=== PATIENT | male | born 1955 | race Caucasian/White ===

== ENCOUNTER → 2017-05-12 | Outpatient (CLI) | payer OTHER | LOC: YCFC.O 09:43 | PROVIDERS: ATTEND Nurse Practitioner Family | DX: R53.83 Other fatigue (principal); R63.0 Anorexia; R63.4 Abnormal weight loss ==

== ENCOUNTER → 2017-05-21 | Outpatient (CLI) | payer OTHER ==
--- NOTE | 2017-05-22 08:58 | RAD ---
EXAM DESCRIPTION: Chest,2 Views CLINICAL HISTORY: 61 years, Male, DYSPNEA COMPARISON: March 08, 2014 FINDINGS: Adequate inspiration. Fibrotic change particularly at the bases. Old rib fractures on the right. Cardiac silhouette normal. Mildly kyphotic thoracic spine with several partial compression injuries, chronic.. IMPRESSION: Chronic appearing lung change with normal heart size Electronically signed by: Matt Anderson MD 05/22/2017 8:56 AM CDT
== END | disposition home or self-care (01) ==
LOC: YCFC.O 11:26
PROVIDERS: ATTEND Nurse Practitioner Family
DX: R06.2 Wheezing (principal)

== ENCOUNTER → 2017-05-23 | Outpatient (CLI) | payer OTHER ==
--- NOTE | 2017-05-23 13:19 | CT ---
EXAM DESCRIPTION: Chest w/Contrast CLINICAL HISTORY: 61 years, Male, FEVER- INTERMITTENT, GREATER THAN 102 FOR APPROX 1 WEEK COMPARISON: None TECHNIQUE: Thin-section axial CT images are obtained during rapid bolus administration of nonionic contrast IV contrast media. Reconstructed MPR images are created and reviewed as well. This exam was performed according to our departmental dose-optimization program, which includes automated exposure control, adjustment of the mA and/or kV according to patient size and/or use of iterative reconstruction technique. FINDINGS: Elevated left hemidiaphragm with marked splenomegaly and a large accessory splenule is noted with no focal lesion evident within the liver. Below the diaphragm the liver is mildly fatty replaced. No hiatal hernia or retrocrural or retroperitoneal adenopathy is noted in the visualized adrenal glands and kidneys are unremarkable. Lung boyer are essentially clear with no infiltrates or effusions or masses. Emphysematous or bullous or fibrotic changes are not apparent. The thoracic inlet and superior mediastinum as well as the middle mediastinum and hilar structures are normal. No pericardial effusion is seen. IMPRESSION: 1. Markedly elevated left hemidiaphragm with marked splenomegaly and large accessory splenial without focal mass. 2. CT examination of the chest is essentially normal with mild diffuse fatty infiltration of the liver also noted. Electronically signed by: Travis Rowe MD 05/23/2017 1:18 PM CDT
== END ==
LOC: YCFC.O 08:17
PROVIDERS: ATTEND Nurse Practitioner Family
DX: R50.9 Fever, unspecified (principal); R06.82 Tachypnea, not elsewhere classified; R16.1 Splenomegaly, not elsewhere classified; K76.0 Fatty (change of) liver, not elsewhere classified

== ENCOUNTER → 2017-08-25 | Outpatient (CLI) | payer OTHER ==
--- NOTE | 2017-08-26 11:16 | MRI ---
Procedure: MR LUMBAR SPINE WITHOUT IV CONTRAST Exam Date: 08/25/2017 4:05 PM CDT Ordering Provider: Bradley Campbell Clinical Indication: RADICULOPATHY Comparison: None Technique: Multiplanar, multisequence MR images of the lumbar spine were obtained. Findings: No evidence of vertebral body compression deformity or acute fracture. Exaggerated lumbar lordosis. Spinal cord terminates at the superior endplate of L1 and is normal in signal morphology. Cauda equina separate appropriately. T12-L1: Unremarkable. L1-L2: Mild facet arthrosis without stenosis. L2-L3: Disc desiccation without disc herniation. No stenosis. L3-L4: Unremarkable L4-L5: Advanced facet arthrosis with trace disc osteophyte complex. Severe ligamentum flavum hypertrophy. Overall findings contribute to moderate spinal canal and subarticular recess stenosis. No foraminal stenosis. L5-S1: Transitional anatomy with sacralization of L5 and hypoplastic facet joints. There is moderate facet arthrosis yet no spinal canal or foraminal stenosis. Prevertebral and paravertebral soft tissues are unremarkable. Impression: Transitional lumbosacral anatomy with sacralization of L5. No high-grade spinal canal or foraminal stenosis. There is advanced facet arthrosis at L4-L5 contributing to moderate spinal canal stenosis. Electronically signed by: Matthias Turk MD 08/26/2017 11:15 AM CDT
--- NOTE | 2017-08-26 11:58 | RAD ---
EXAM DESCRIPTION: Lumbar Spine 5 Views (accession [id number]), Lumbar Spine,Flex/Ext (accession [id number]) CLINICAL HISTORY: 62 years Male, LOW BACK PAIN COMPARISON: None. FINDINGS: 5 views of the lumbar spine and additional flexion and extension views were obtained. There is no vertebral body fracture or subluxation. The disc spaces are fairly well-maintained. There are small marginal osteophytes at several levels in the lumbar spine. Facet joint degeneration is noted at L4-5 and L5-S1. The spinous and transverse processes are intact. Transitional anatomy is noted at the lumbosacral junction with sacralization of the L5 segment. The sacroiliac joints are unremarkable. No pars defect. Flexion and extension views show no evidence of dynamic instability. IMPRESSION: Mild multilevel degenerative changes including facet joint degeneration, worse at L4-5 and L5-S1. Electronically signed by: Gaurav Galvez MD 08/26/2017 11:57 AM CDT
--- NOTE | 2017-08-26 11:58 | RAD ---
EXAM DESCRIPTION: Lumbar Spine 5 Views (accession [id number]), Lumbar Spine,Flex/Ext (accession [id number]) CLINICAL HISTORY: 62 years Male, LOW BACK PAIN COMPARISON: None. FINDINGS: 5 views of the lumbar spine and additional flexion and extension views were obtained. There is no vertebral body fracture or subluxation. The disc spaces are fairly well-maintained. There are small marginal osteophytes at several levels in the lumbar spine. Facet joint degeneration is noted at L4-5 and L5-S1. The spinous and transverse processes are intact. Transitional anatomy is noted at the lumbosacral junction with sacralization of the L5 segment. The sacroiliac joints are unremarkable. No pars defect. Flexion and extension views show no evidence of dynamic instability. IMPRESSION: Mild multilevel degenerative changes including facet joint degeneration, worse at L4-5 and L5-S1. Electronically signed by: Gaurav Galvez MD 08/26/2017 11:57 AM CDT
== END ==
LOC: MRI 16:00
PROVIDERS: ATTEND Orthopaedic Surgery
DX: M47.26 Other spondylosis with radiculopathy, lumbar region (principal); M48.061 Spinal stenosis, lumbar region without neurogenic claudication

== ENCOUNTER → 2017-09-08 | Outpatient (CLI) | payer OTHER | END | disposition home or self-care (01) | LOC: YCFC.O 09:17 | PROVIDERS: ATTEND Internal Medicine Infectious Disease | DX: K44.9 Diaphragmatic hernia without obstruction or gangrene (principal); Z00.00 Encounter for general adult medical examination without abnormal findings ==

== ENCOUNTER → 2017-09-26 | Outpatient (CLI) | payer OTHER | END | disposition home or self-care (01) | LOC: LAB.O 09:29 | PROVIDERS: ATTEND Orthopaedic Surgery Orthopaedic Surgery of the Spine | DX: M54.5 Low back pain (principal) ==

== ENCOUNTER → 2018-01-08 | Outpatient (CLI) | payer OTHER ==
--- NOTE | 2018-01-08 15:08 | RAD ---
EXAM: Knee,Right Complete HISTORY: PAIN IN RIGHT KNEE COMPARISON: None TECHNIQUE: Four radiographic views of knee FINDINGS: Unremarkable bony alignment in the knee joint. No acute fracture nor dislocation nor inflammatory bony erosion. Knee joint compartments are maintained. No suprapatellar effusion or other soft tissue abnormality around the joint. 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
== END ==
LOC: RAD 12:50
PROVIDERS: ATTEND Orthopaedic Surgery
DX: M25.561 Pain in right knee (principal)

== ENCOUNTER → 2018-10-30 | Outpatient (CLI) | payer OTHER | LOC: YCFC.O 09:46 | PROVIDERS: ATTEND Nurse Practitioner Family | DX: Z00.00 Encounter for general adult medical examination without abnormal findings (principal) ==

== ENCOUNTER → 2018-12-24 | Outpatient (CLI) | payer OTHER | LOC: YCFC.O 11:18 | PROVIDERS: ATTEND Nurse Practitioner Family | DX: E03.9 Hypothyroidism, unspecified (principal) ==

== ENCOUNTER → 2019-08-26 | Outpatient (CLI) | payer OTHER ==
--- NOTE | 2019-08-27 08:16 | RAD ---
EXAM DESCRIPTION: Pelvis CLINICAL HISTORY: 64 years Male, PAIN IN RIGHT HIP COMPARISON: August 08, 2016. TECHNIQUE: AP radiograph of the pelvis was performed. FINDINGS: The pelvic ring appears grossly intact on this single AP radiograph. No gross fracture identified. Bilateral sacroiliac joints appear normal. Bilateral hip joints demonstrate mild osteoarthritic changes. The visualized lumbo-sacral spine demonstrates mild degenerative changes. IMPRESSION: Single AP radiograph of the pelvis demonstrates grossly intact pelvic ring. Electronically signed by: Brandin Cordova MD 08/27/2019 8:14 AM CDT
--- NOTE | 2019-08-27 08:18 | RAD ---
EXAM DESCRIPTION: Knee,Right Complete CLINICAL HISTORY: 64 years Male, PAIN IN RIGHT KNEE COMPARISON: January 08, 2018 FINDINGS: Four views of the right knee show no acute fracture or malalignment. Advanced medial joint space narrowing. The lateral patellofemoral joint spaces are relatively well-maintained. Small right knee joint effusion. IMPRESSION: Advanced degenerative changes in the medial compartment of the right knee with a small right knee joint effusion. Electronically signed by: Gaurav Galvez MD 08/27/2019 8:16 AM CDT
== END ==
LOC: RAD 11:13
PROVIDERS: ATTEND Orthopaedic Surgery
DX: M17.11 Unilateral primary osteoarthritis, right knee (principal); M25.551 Pain in right hip

== ENCOUNTER → 2019-12-07 | Outpatient (CLI) | payer OTHER | LOC: LAB.O 09:10 | PROVIDERS: ATTEND Family Medicine | DX: I10 Essential (primary) hypertension (principal) ==

== ENCOUNTER → 2020-01-19 | Outpatient (CLI) | payer OTHER | DX: I10 Essential (primary) hypertension (principal) ==